=== PATIENT | female | born 1950 | race African-American/Black ===

== ENCOUNTER → 2016-10-09 | Outpatient (CLI) | payer MEDICARE, OTHER ==
[~2016-10-09] MED LIST: ASPI81TA2 PO; FOLI1TAB16 PO; IOHEXOL 240 MG/ML 50ML VIAL. ONE; IOHEXOL 240 MG/ML 50ML VIAL. PO ONE; IOHEXOL 300 MG/ML 75 ML VIAL. IV ONE; LEVO25TA4 PO; LISI2.5T PO; OMEG300C PO; VITA15DR PO
--- NOTE | 2016-10-09 11:40 | RAD ---
Indication intermittent left lower quadrant pain for a month. Axial images through the abdomen and pelvis were obtained. Oral contrast was administered. IV access could not be obtained and the study was done without IV contrast. Note is made of a previous similar examination 04/11/2014. There are underlying emphysematous changes with some associated pleural parenchymal scarring at the lung bases. The findings are similar to the previous exam. There is a low-density mass in the right lobe of the liver compatible with a cyst similar to the previous exam. A significant finding in the liver is not seen. The gallbladder is largely contracted but grossly normal. The spleen appears unremarkable. There are no adrenal masses. There are calcifications seen associated with the kidneys which are probably vascular in nature. These are unchanged relative to the previous exam. Aortic bypass is noted. No pancreatic abnormality is seen. An acute finding in the abdomen is not apparent. An acute finding in the pelvis is not seen. There are degenerative changes in the lumbar spine most pronounced at L5-S1 IMPRESSION: No acute finding seen in the abdomen or pelvis
== END | disposition home or self-care (01) ==
LOC: CT 08:08
PROVIDERS: ATTEND Family Medicine
DX: M47.897 Other spondylosis, lumbosacral region (principal)
CPT/HCPCS: 74176; Q9966

== ENCOUNTER → 2016-11-15 | Outpatient (CLI) | payer MEDICARE, OTHER ==
[~2016-11-15] MED LIST changes: -IOHEXOL 240 MG/ML 50ML VIAL. ONE; -IOHEXOL 240 MG/ML 50ML VIAL. PO ONE; -IOHEXOL 300 MG/ML 75 ML VIAL. IV ONE
--- NOTE | 2016-11-15 11:10 | RAD ---
DATE: 11/15/2016 EXAM: MAMMO MACHELLE SCREENING BILATERAL HISTORY: Routine screening COMPARISON: 09/30/2014, 10/25/2015 This study was interpreted with the benefit of Computerized Aided Detection (CAD). FINDINGS: 2-D and 3-D tomosynthesis imaging was performed in CC and MLO projections. There are scattered fibroglandular densities in the breasts. There is an unchanged tiny nodule at the 6:00 location in the right breast. There is a larger 10 mm nodule in the upper outer quadrant of the left breast which is also unchanged. No new or enlarging breast densities are seen. A few scattered benign type calcifications are noted. No suspicious microcalcifications have developed. IMPRESSION: Stable mammograms without evidence of malignancy. BI-RADS CATEGORY: 2 BENIGN FINDING(S) RECOMMENDED FOLLOW-UP: 12M 12 MONTH FOLLOW-UP PQRS compliance statement: Patient information was entered into a reminder system with a target due date for the next mammogram. Mammography is a sensitive method for finding small breast cancers, but it does not detect them all and is not a substitute for careful clinical examination. A negative mammogram does not negate a clinically suspicious finding and should not result in delay in biopsying a clinically suspicious abnormality. "Our facility is accredited by the [employer] Mammography Program."
== END | disposition home or self-care (01) ==
LOC: MAMMO 08:44
PROVIDERS: ATTEND Family Medicine
DX: Z12.31 Encounter for screening mammogram for malignant neoplasm of breast (principal)
CPT/HCPCS: 77063; G0202; 77067

== ENCOUNTER → 2017-11-13 | Outpatient (CLI) | payer MEDICARE, OTHER ==
[~2017-11-13] MED LIST changes: +ASPI-630 PO; -ASPI81TA2 PO
--- NOTE | 2017-11-14 11:47 | RAD ---
Bilateral lower extremity arterial ultrasound, 11/13/2017: History: Peripheral vascular disease Duplex evaluation of the major arteries in both lower extremities was performed including grayscale, color-flow and spectral Doppler analysis. There are mild scattered calcified plaques bilaterally. On the right, the common femoral, superficial femoral and popliteal arteries demonstrate biphasic Doppler waveforms. No significant focal velocity elevation is seen to suggest high-grade focal stenosis. Patent posterior tibial, peroneal and anterior tibial arteries are present in the right lower leg demonstrating good amplitude biphasic Doppler waveforms. A similar biphasic waveform is present in the right dorsalis pedis artery. On the left, the common femoral Doppler waveform is triphasic. The left superficial femoral and popliteal Doppler waveforms are biphasic. No significant focal velocity elevation is seen to suggest high-grade stenosis. Patent posterior tibial, peroneal and anterior tibial arteries are present in the left lower leg demonstrating biphasic Doppler waveforms. A similar biphasic Doppler waveform is present at the left dorsalis pedis artery level. IMPRESSION: Mild scattered atherosclerotic plaquing in both lower extremities without duplex evidence of significant arterial occlusive disease.
== END | disposition home or self-care (01) ==
LOC: US 14:37
PROVIDERS: ATTEND Family Medicine
DX: I70.293 Other atherosclerosis of native arteries of extremities, bilateral legs (principal)
CPT/HCPCS: 93925

== ENCOUNTER → 2017-11-28 | Outpatient (CLI) | payer MEDICARE, OTHER ==
[~2017-11-28] MED LIST changes: +IOHEXOL 300 MG/ML 50 ML VIAL. ONE; +methylPREDNISolone ACETATE 40 MG/ML VIAL. ONE
== END ==
LOC: SURG 11:26
PROVIDERS: ATTEND Anesthesiology Pain Medicine
DX: M79.1 Myalgia (principal); J45.909 Unspecified asthma, uncomplicated; J32.9 Chronic sinusitis, unspecified; J44.9 Chronic obstructive pulmonary disease, unspecified; I10 Essential (primary) hypertension; I25.10 Atherosclerotic heart disease of native coronary artery without angina pectoris; E11.9 Type 2 diabetes mellitus without complications; Z87.39 Personal history of other diseases of the musculoskeletal system and connective tissue
CPT/HCPCS: 20553; J1030; Q9967

== ENCOUNTER → 2017-12-25 | Outpatient (CLI) | payer MEDICARE, OTHER ==
[~2017-12-25] MED LIST changes: -IOHEXOL 300 MG/ML 50 ML VIAL. ONE; -methylPREDNISolone ACETATE 40 MG/ML VIAL. ONE
--- NOTE | 2017-12-30 09:39 | RAD ---
DATE: 12/30/2017 EXAM: MAMMO MACHELLE SCREENING BILATERAL HISTORY: Routine screening COMPARISON: Previous study from 2017 and 2016 This study was interpreted with the benefit of Computerized Aided Detection (CAD). FINDINGS: 2-D and 3-D tomosynthesis imaging was performed in CC and MLO projections. Breast density category A: the breasts are entirely fatty. The skin and nipples are within normal limits. Couple of benign bilateral intramammary lymph nodes. No suspicious ossifications, spiculated mass or area of architectural distortion. IMPRESSION: Stable mammograms without evidence of malignancy. BI-RADS CATEGORY: 2 BENIGN FINDING(S) RECOMMENDED FOLLOW-UP: 12M 12 MONTH FOLLOW-UP PQRS compliance statement: Patient information was entered into a reminder system with a target due date for the next mammogram. Mammography is a sensitive method for finding small breast cancers, but it does not detect them all and is not a substitute for careful clinical examination. A negative mammogram does not negate a clinically suspicious finding and should not result in delay in biopsying a clinically suspicious abnormality. "Our facility is accredited by the [employer] Mammography Program."
== END | disposition home or self-care (01) ==
LOC: MAMMO 14:53
PROVIDERS: ATTEND Family Medicine
DX: Z12.31 Encounter for screening mammogram for malignant neoplasm of breast (principal)
CPT/HCPCS: 77063; 77067

== ENCOUNTER → 2018-07-29 | Outpatient (CLI) | payer MEDICARE, OTHER ==
[~2018-07-29] MED LIST changes: +IOHEXOL 240 MG/ML 50ML VIAL. ONE
--- NOTE | 2018-07-29 16:40 | RAD ---
Examination: CT abdomen without contrast HISTORY: History of abdominal pain COMPARISON: 10/09/2016 TECHNIQUE:: Axial CT images of the abdomen were performed with oral contrast. Coronal and sagittal reformats are performed Exposure: One or more of the following individualized dose reduction techniques were utilized for this examination: 1. Automated exposure control 2. Adjustment of the mA and/or kV according to patient size 3. Use of iterative reconstruction technique FINDINGS: Partially visualized lung emphysematous changes identified in the bibasilar lungs. Linear atelectasis or scarring identified in the right lung base. No evidence of free air identified in the visualized abdomen. The visualized noncontrasted liver demonstrates a 2.3 cm cystic hypodensity in the right lobe of the liver likely a cyst. Visualized spleen, adrenals grossly appears unremarkable. The gallbladder is mildly distended. The stomach is mildly distended. Foci of air identified within the lumen of the stomach abutting the stomach wall. The visualized pancreas grossly appears unremarkable. The small bowel is nondilated. Punctate 4 mm calcification identified in the right and left kidney probably vascular calcifications and less likely intrarenal collecting system calculi. Partially visualized bypass graft identified in the aorta. Severe aortic atherosclerosis. Moderate degenerative changes lumbar spine. IMPRESSION: 1. No acute intra-abdominal findings identified. Examination limited due to lack of IV contrast. 2. Unchanged liver cyst. 3. Punctate 4 mm calcifications identified in the right and left kidneys could be vascular calcifications and less likely intrarenal collecting system calculi. Electronically signed by: Jairon Walsh MD (07/29/2018 4:36 PM) [id number]
== END | disposition home or self-care (01) ==
LOC: CT 13:32
PROVIDERS: ATTEND Family Medicine
DX: K76.89 Other specified diseases of liver (principal); N28.89 Other specified disorders of kidney and ureter; I70.0 Atherosclerosis of aorta; K31.89 Other diseases of stomach and duodenum; K82.8 Other specified diseases of gallbladder
CPT/HCPCS: 74150; Q9966

== ENCOUNTER → 2018-12-28 | Outpatient (CLI) | payer MEDICARE, OTHER ==
[~2018-12-28] MED LIST changes: -IOHEXOL 240 MG/ML 50ML VIAL. ONE
--- NOTE | 2018-12-30 10:31 | RAD ---
DATE: 12/28/2018 EXAM: MAMMO MACHELLE SCREENING BILATERAL HISTORY: Routine screening COMPARISON: 12/25/2017 This study was interpreted with the benefit of Computerized Aided Detection (CAD). Breast Density: FATTY The breast parenchyma is primarily fatty replaced. Breast parenchyma level density A. FINDINGS: 2-D and 3-D tomosynthesis imaging was performed in CC and MLO projections. There is an unchanged lymph node type density in the upper outer quadrant of the left breast. There is a tiny unchanged nodule at the 6:00 location in the right breast. No spiculated mass or architectural distortion is evident. Scattered benign type calcifications are present. No suspicious microcalcifications have developed. IMPRESSION: Stable mammograms without evidence of malignancy. BI-RADS CATEGORY: 2 BENIGN FINDING(S) RECOMMENDED FOLLOW-UP: 12M 12 MONTH FOLLOW-UP PQRS compliance statement: Patient information was entered into a reminder system with a target due date for the next mammogram. Mammography is a sensitive method for finding small breast cancers, but it does not detect them all and is not a substitute for careful clinical examination. A negative mammogram does not negate a clinically suspicious finding and should not result in delay in biopsying a clinically suspicious abnormality. "Our facility is accredited by the [employer] Mammography Program."
== END | disposition home or self-care (01) ==
LOC: MAMMO 12:51
PROVIDERS: ATTEND Family Medicine
DX: Z12.31 Encounter for screening mammogram for malignant neoplasm of breast (principal); N64.89 Other specified disorders of breast
CPT/HCPCS: 77063; 77067

== ENCOUNTER → 2020-01-18 | Outpatient (CLI) | payer MEDICARE, OTHER ==
--- NOTE | 2020-01-19 14:36 | RAD ---
BILATERAL SCREENING MAMMOGRAM, 3-D History: Routine screening. Comparison: 12/28/2018, 12/25/2017, 11/15/2016, 10/25/2015. Technique: MLO and CC digital tomosynthesis (3D) images obtained. Radiologist reviewed these images on dedicated workstation. Findings: Breast Tissue Density B : There are scattered areas of fibroglandular density. There are no dominant masses, suspicious microcalcifications, or architectural distortion. IMPRESSION: No mammographic evidence of malignancy. Recommend routine screening. BI-RADS category 1: Negative. The images were reviewed with computer-aided detection. Patient information is entered into reminder system with a target due date for the next screening mammogram. Mammography is the most sensitive method for finding small breast cancers, but it does not detect them all and is not a substitute for careful clinical examination. A negative mammogram does not negate a clinically suspicious finding and should not result in delay in biopsying a clinically suspicious abnormality. "Our facility is accredited by the [employer] Mammography Program." Electronically signed by: Brent Jaime MD (01/19/2020 2:33 PM) [id number]
== END | disposition home or self-care (01) ==
LOC: MAMMO 11:17
PROVIDERS: ATTEND Family Medicine
DX: Z12.31 Encounter for screening mammogram for malignant neoplasm of breast (principal)
CPT/HCPCS: 77063; 77067

== ENCOUNTER 2020-03-01 23:45 | Emergency (ER) | payer MEDICARE, OTHER ==
[~2020-03-01] VITALS: Ht 152.4 cm; Wt 60.5 kg
--- NOTE | 2020-03-02 00:17 | PHYS DOC ---
Past History Past Medical History: Arthritis, Diabetes, Hypertension, Renal Disease Past Surgical History: Hysterectomy, Other Additional Past Surgical Histo: carotid endarectomy; back surgery; Alcohol Use: None Adult General Chief Complaint Chief Complaint: HYPERTENSION HPI HPI Patient is a 70-year-old female who presents for asymptomatic hypertension. Patient reports taking her daily BP medications (30 mg lisinopril) in the evening at 9 PM. Nonetheless, approximately 1 hour after taking this medication, patient reported feeling "shaky"with feelings lasting less than 30 seconds. This prompted patient to check her fingerstick blood sugar which read 183 and BP which read a reading of roughly 200/100. Patient's elevated blood pressure reading concerned her prompting her to report to our ER for evaluation. Patient otherwise asymptomatic at time of arrival, denies any recent febrile illness, denies any known COVID-19 contacts. Denies headache, vision changes, chest pain, shortness of breath, abdominal pain, motor/sensory/neurologic changes. Patient admits to drinking "lots" of caffeine daily, admits consumption has not changed over the course of the last 24 to 48 hours. Admits recent medication changes, has history of taking Zestoretic but per her news specialist, hydrochlorothiazide was discontinued and patient has been taking 30 mg lisinopril nightly for past 1 month. Patient reports checking her blood pressure every morning with readings consistently less than 140/90, she is unsure of cause of elevated blood pressure reading this evening prompting her to seek emergent care today Review of Systems Review of Systems Fourteen body systems of review of systems have been reviewed. See HPI for pertinent positives and negative responses, other leal all other systems are negative, non-pertinent or non-contributory Allergies Allergies Allergies Coded Allergies Type Severity Reaction Last Updated Verified Sulfa (Sulfonamide Antibiotics) Allergy Intermediate 04/11/14 Yes Physical Exam Physical Exam Constitutional: Well developed, well nourished, no acute distress, non-toxic appearance. HENT: Normocephalic, atraumatic, bilateral external ears normal, oropharynx moist, no oral exudates, nose normal. Eyes: PERRLA, EOMI, conjunctiva normal, no discharge. Neck: Normal range of motion, no tenderness, supple, no stridor. Cardiovascular: Heart rate regular, sinus rhythm, no murmurs rubs or gallops Lungs & Thorax: Bilateral breath sounds clear to auscultation Abdomen: Bowel sounds normal, soft, no tenderness, no masses, no pulsatile masses. Nonsurgical abdomen, no peritoneal signs Skin: Warm, dry, no erythema, no rash. Back: No tenderness, no CVA tenderness. Extremities: No tenderness, no cyanosis, no clubbing, ROM intact, no edema. Neurologic: Alert and oriented X 3, grossly normal motor & sensory function, no focal deficits noted. Psychologic: Affect normal, judgement normal, mood normal. Current Patient Data Vital Signs Vital Signs Date Time Temp Pulse Resp B/P (MAP) Pulse Ox O2 Delivery O2 Flow Rate FiO2 03/01/20 23:55 97.6 98 16 190/107 (134) 99 Room Air EKG EKG [] Radiology/Procedures Radiology/Procedures [] Course & Med Decision Making Course & Med Decision Making Ambulatory, well-appearing, and asymptomatic patient seen on immediate ER presentation by myself Airway patent, unlabored breathing, vital signs obtained and remarkable for marked hypertension without any other abnormalities Comprehensive history and physical exam obtained No indication for further diagnostic work-up given current asymptomatic hypertension Discussed potential plans of care for patient for her asymptomatic hypertension Joint decision to administer 10 mg lisinopril tonight with close PCP follow-up in the morning I advised patient to resume 30 mg lisinopril in outpatient setting after today's visit unless otherwise changed by her PCP. Discussed importance of keeping comprehensive blood pressure log for PCP review, I advised patient to record at least 2 or 3 readings daily until she is seen by PCP Strict return precautions were discussed with good understanding by patient, all questions and concerns addressed prior to ER departure Ultimately, patient discharged home in stable condition with close PCP contact and hopeful follow-up in the morning for asymptomatic hypertension Dragon Disclaimer Dragon Disclaimer This electronic medical record was generated, in whole or in part, using a voice recognition dictation system. Departure Departure: Impression: Primary Impression: Asymptomatic hypertension Disposition: 01 HOME/RESIDENCE PRIOR TO ADM Condition: STABLE Referrals: IKER HESS MD (PCP) Patient Instructions: Hypertension Justification of Admission: Justification of Admission: Justification of Admission Dx: N/A MISAELJOSE DO Mar 02, 2020 00:17
[2020-03-02] MEDS ORDERED: LISINOPRIL 10 MG TABLET ONE (00:24)
[2020-03-02 00:26] VITALS: BP 189/90
[2020-03-02] MEDS ORDERED: LISINOPRIL 10 MG TABLET PO ONE (00:30)
[2020-03-06] MEDS ORDERED: AMLO2.5T5 PO (01:44)
== END 2020-03-02 00:30 | disposition home or self-care (01) ==
LOC: ER 23:45
DX: I10 Essential (primary) hypertension (principal); M19.90 Unspecified osteoarthritis, unspecified site; E11.9 Type 2 diabetes mellitus without complications; Z88.2 Allergy status to sulfonamides
CPT/HCPCS: 99283

== ENCOUNTER → 2020-03-06 | Emergency (ER) | payer MEDICARE, OTHER ==
[~2020-03-06] VITALS: Ht 152.4 cm; Wt 59.2 kg
[~2020-03-06] MED LIST changes: +AMLO2.5T5 PO; +hydrALAZINE 20 MG/ML VIAL. IV ONE
--- NOTE | 2020-03-06 00:12 | PHYS DOC ---
Past History Past Medical History: Arthritis, Diabetes, Hypertension, Hypothyroid, Renal Disease Past Surgical History: Hysterectomy, Other Additional Past Surgical Histo: carotid endarectomy; back surgery; Alcohol Use: None General Adult EDM: Chief Complaint: high blood pressure HPI: HPI: Patient is a 70 year old female who presents for evaluation of increased blood pressure tonight. Patient states she felt some shakiness but no headache or vision changes. Patient denies any shortness of air or chest pain either. Patient is otherwise benign-appearing. Patient was seen in the ER about 3 nights ago for a similar problem. Dr. Richards is her physician. Patient has a steady gait with no focal deficits or lateralizing signs. Patient had recently been on a water pill but was discontinued due to her renal insufficiency and concerns about developing dehydration. Review of Systems: Review of Systems: Constitutional: Denies fever or chills Eyes: Denies change in visual acuity HENT: Denies nasal congestion or sore throat Respiratory: Denies cough or shortness of breath Cardiovascular: Denies chest pain or edema GI: Denies abdominal pain, nausea, vomiting, or diarrhea : Denies dysuria Musculoskeletal: Denies back pain or joint pain Integument: Denies rash Neurologic: Denies headache, focal weakness or sensory changes Endocrine: Denies polyuria or polydipsia Lymphatic: Denies swollen glands Psychiatric: Denies depression or anxiety Heart Score: Risk Factors: Risk Factors: DM, Current or recent (<one month) smoker, HTN, HLP, family history of CAD, obesity. Risk Scores: Score 0 - 3: 2.5% MACE over next 6 weeks - Discharge Home Score 4 - 6: 20.3% MACE over next 6 weeks - Admit for Clinical Observation Score 7 - 10: 72.7% MACE over next 6 weeks - Early Invasive Strategies Allergies: Allergies: Allergies Coded Allergies Type Severity Reaction Last Updated Verified Sulfa (Sulfonamide Antibiotics) Allergy Intermediate 04/11/14 Yes Physical Exam: PE: Constitutional: Well developed, well nourished, mild acute distress, non-toxic appearance. [] HENT: Normocephalic, atraumatic, bilateral external ears normal, oropharynx moist, no oral exudates, nose normal. [] Eyes: PERRL, EOMI, conjunctiva normal, no discharge. [] Neck: Normal range of motion, no tenderness, supple, no stridor. [] Cardiovascular:Heart rate regular rhythm, no murmur [] Lungs & Thorax: Bilateral breath sounds clear to auscultation [] Abdomen: Bowel sounds normal, soft, no tenderness, no masses, no pulsatile masses. [] Skin: Warm, dry, no erythema, no rash. [] Back: No tenderness. [] Extremities: No tenderness, no cyanosis, ROM intact, no edema. [] Neurologic: Alert and oriented X 3, normal motor function, normal sensory function, no focal deficits noted. [] Psychologic: Affect normal, judgement normal, mood normal. [] Current Patient Data: Labs: Laboratory Tests Test 03/06/20 00:35 White Blood Count 7.5 x10^3/uL Red Blood Count 3.83 x10^6/uL Hemoglobin 11.9 g/dL Hematocrit 35.9 % Mean Corpuscular Volume 94 fL Mean Corpuscular Hemoglobin 31 pg Mean Corpuscular Hemoglobin Concent 33 g/dL Red Cell Distribution Width 13.4 % Platelet Count 280 x10^3/uL Neutrophils (%) (Auto) 39 % Lymphocytes (%) (Auto) 50 % Monocytes (%) (Auto) 8 % Eosinophils (%) (Auto) 2 % Basophils (%) (Auto) 1 % Neutrophils # (Auto) 3.0 x10^3uL Lymphocytes # (Auto) 3.8 x10^3/uL Monocytes # (Auto) 0.6 x10^3/uL Eosinophils # (Auto) 0.1 x10^3/uL Basophils # (Auto) 0.1 x10^3/uL Sodium Level 143 mmol/L Potassium Level 3.6 mmol/L Chloride Level 108 mmol/L Carbon Dioxide Level 24 mmol/L Anion Gap 11 Blood Urea Nitrogen 26 mg/dL Creatinine 1.3 mg/dL Estimated GFR (Cockcroft-Gault) 49.0 BUN/Creatinine Ratio 20 Glucose Level 89 mg/dL Calcium Level 9.5 mg/dL Total Bilirubin 0.2 mg/dL Aspartate Amino Transf (AST/SGOT) 23 U/L Alanine Aminotransferase (ALT/SGPT) 22 U/L Alkaline Phosphatase 112 U/L Troponin I Quantitative < 0.017 ng/mL Total Protein 7.6 g/dL Albumin 3.3 g/dL Albumin/Globulin Ratio 0.8 Current Medications Medications (Trade) Dose Ordered Sig/Fran Route PRN Reason Start Time Stop Time Status Last Admin Dose Admin Hydralazine HCl (Apresoline) 10 mg 1X ONCE IV 03/06/20 01:00 03/06/20 01:01 DC 03/06/20 01:08 EKG: EKG: EKG showed normal sinus rhythm, rate 70, flattened T waves lead III, otherwise essentially normal EKG, not STEMI, patient likely has old anterior septal infarct [] Radiology/Procedures: Radiology/Procedures: [] Course & Med Decision Making: Course & Med Decision Making Pertinent Labs and Imaging studies reviewed. (See chart for details) [] Dragon Disclaimer: Dragon Disclaimer: This electronic medical record was generated, in whole or in part, using a voice recognition dictation system. 0104 stable, feeling better at this time. Current blood pressure now 166/87 after IV hydralazine given 0140 patient continues to symptomatically improved. Current blood pressure 159/72. Patient had been on a water pill recently but due to her chronic renal insufficiency it has been discontinued. Since then she has been running elevated blood pressures. Patient advised to call and see Dr. Celis right away the office. Departure Departure: Impression: Primary Impression: Elevated blood pressure reading Additional Impression: Chronic renal disease Qualified Codes: N18.9 - Chronic kidney disease, unspecified Disposition: HOME/RESIDENCE PRIOR TO ADM Condition: STABLE Referrals: IKER RICHARDS MD (PCP) Patient Instructions: Hypertension Additional Instructions: Keep monitoring your blood pressures at home. Call and see your doctor about changing your blood pressure medication. In the meantime a prescription for a limited number of amlodipine given Scripts Amlodipine Besylate (AMLODIPINE BESYLATE) 2.5 Mg Tablet 1 TAB PO DAILY for hypertension, #30 TAB 5 Refills Prov: EVELYN MCCRACKEN DO 03/06/20 Justification of Admission: Justification of Admission: Justification of Admission Dx: N/A EVELYN MCCRACKEN DO Mar 06, 2020 00:12
--- NOTE | 2020-03-06 00:40 | EKG ---
[address] [address] Test Date: 2020-03-06 Test Time: 00:35:07 Pat Name: MIGUEL MARTINEZ Department: Room: Gender: F Flooring Professional: : 1950 Requested By: EVELYN MCCRACKEN Order Number: [id number] Reading MD: Measurements Intervals Elton Rate: 78 P: 59 NM: 198 QRS: 37 QRSD: 66 T: 26 QT: 374 QTc: 430 Interpretive Statements SINUS RHYTHM LEFT ATRIAL ABNORMALITY QRS(T) CONTOUR ABNORMALITY CONSISTENT WITH ANTEROSEPTAL INFARCT PROBABLY OLD ABNORMAL ECG RI6.02 No previous ECG available for comparison
[2020-03-06 00:56] LABS: BASO # 0.1 x10^3/uL (0.0-0.2); BASO % 1 % (0-3); EOS # 0.1 x10^3/uL (0.0-0.7); EOS % 2 % (0-3); HEMATOCRIT 35.9 % (36.0-47.0); HEMOGLOBIN 11.9 g/dL (12.0-15.5); LYMPH # 3.8 x10^3/uL (1.0-4.8); LYMPH % 50 % (24-48); MEAN CORPUSCULAR HEMOGLOBIN 31 pg (25-35); MEAN CORPUSCULAR HGB CONC 33 g/dL (31-37); MEAN CORPUSCULAR VOLUME 94 fL (79-100); MONO # 0.6 x10^3/uL (0.0-1.1); MONO % 8 % (0-9); NEUT % 39 % (31-73); PLATELET COUNT 280 x10^3/uL (140-400); RED BLOOD COUNT 3.83 x10^6/uL (3.50-5.40); RED CELL DISTRIBUTION WIDTH 13.4 % (11.5-14.5); WHITE BLOOD COUNT 7.5 x10^3/uL (4.0-11.0)
[2020-03-06 01:06] LABS: CALCIUM 9.5 mg/dL (8.5-10.1); CREATININE 1.3 mg/dL (0.6-1.0); POTASSIUM 3.6 mmol/L (3.5-5.1)
[2020-03-06 01:12] VITALS: BP 166/87
[2020-03-06 01:13] LABS: ALBUMIN 3.3 g/dL (3.4-5.0); ALBUMIN/GLOBULIN RATIO 0.8 (1.0-1.7); TOTAL BILIRUBIN 0.2 mg/dL (0.2-1.0); TOTAL PROTEIN 7.6 g/dL (6.4-8.2)
== END ==
LOC: ER 00:02
DX: I12.9 Hypertensive chronic kidney disease with stage 1 through stage 4 chronic kidney disease, or unspecified chronic kidney disease (principal); N18.9 Chronic kidney disease, unspecified; M19.90 Unspecified osteoarthritis, unspecified site; E11.9 Type 2 diabetes mellitus without complications; Z88.2 Allergy status to sulfonamides
CPT/HCPCS: 36415; 80053; 84484; 85025; 93005; 96374; 99284; J0360

== ENCOUNTER → 2020-03-10 | Outpatient (CLI) | payer MEDICARE, OTHER ==
[2020-03-06 01:12] VITALS: BP 166/87
[~2020-03-10] MED LIST changes: -hydrALAZINE 20 MG/ML VIAL. IV ONE
[2020-03-10] MEDS: IOHEXOL 350 MG/ML 100 ML VIAL. IV ONE (18:11)
--- NOTE | 2020-03-10 18:38 | RAD ---
Study: CT CHEST WITH CONTRAST - PULMONARY ANGIOGRAM History: Shortness of air. Elevated d-dimer. History of right lower lobectomy. Comparison: Correlation is made to a CT abdomen from 07/29/2018 Technique: Helical CT of the chest performed after the administration of 75 cc Omnipaque 350 intravenous contrast and timed for angiographic evaluation of the pulmonary arteries per PE protocol. Coronal and sagittal 3D MIP reformations were obtained. One or more of the following individualized dose reduction techniques were utilized for this examination: 1. Automated exposure control 2. Adjustment of the mA and/or kV according to patient size 3. Use of iterative reconstruction technique. Findings: Pulmonary Arteries: No main, lobar or segmental pulmonary embolism. The main pulmonary artery is normal in transverse dimension. Heart/Systemic Vasculature: Multifocal calcified and noncalcified atheromatous plaque. 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 No aortic aneurysmal dilatation. Stenosis at the left subclavian origin appearing to be mild but possibly moderate. Stenosis at the left vertebral artery origin. Calcific coronary artery disease. Mediastinum: Borderline prominent right hilar lymph node on image 57 series 4 measuring around 1 cm short axis. Additional lymph nodes are subcentimeter in size. Lungs: Emphysema. No suspicious nodule by size criteria. No confluent infiltrate, pneumothorax or pleural effusion. Neck/Axilla/Body Wall: Probable previous left hemithyroidectomy. No axillary adenopathy. Upper Abdomen: Right hepatic lobe hypoattenuating focus is unchanged from the comparison. Apparent soft tissue fullness at the left renal pelvis was present in 2019. Bones: No acute or aggressive osseous process. Scattered degenerative changes. Miscellaneous: None. IMPRESSION: 1. No main, lobar or segmental pulmonary embolism is identified. 2. Extensive calcific atherosclerosis to include coronary artery involvement. 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 Mild to potentially moderate stenosis at the left subclavian artery origin. No aortic aneurysmal dilatation or dissection. 3. Emphysematous changes of the lungs. If the patient meets screening guidelines consider annual low dose CT. 4. Soft tissue fullness is partially visualized at the left renal pelvis. This configuration was present in 2019 and may be anatomic but consider eventual renal sonography to further assess. 5. Additional chronic observations as above. Electronically signed by: NEW AGUIAR MD (03/10/2020 6:35 PM) [id number]
== END | disposition home or self-care (01) ==
LOC: CT 17:31
PROVIDERS: ATTEND Nurse Practitioner Adult Health
DX: J43.8 Other emphysema (principal); I25.10 Atherosclerotic heart disease of native coronary artery without angina pectoris; I65.02 Occlusion and stenosis of left vertebral artery; I77.1 Stricture of artery; R79.89 Other specified abnormal findings of blood chemistry
CPT/HCPCS: 71275; Q9967

== ENCOUNTER → 2020-10-07 | Outpatient (CLI) | payer MEDICARE, OTHER ==
[2020-03-06 01:12] VITALS: BP 166/87
--- NOTE | 2020-10-07 10:25 | RAD ---
Exam: US DPLX VENOUS EXTREMITY LOWER LT Indication: Reason: Pain in left leg. Hx: Peripheral vascular angioplasty 09/02/20 / [facility]. Instructions : / History: Technique: Color-flow and pulsed wave duplex ultrasound with compression of venous structures of the left lower extremity. Comparison: None Available. Findings: Duplex ultrasound with compression of the deep venous structures of the left lower extremit y from the common femoral vein through the popliteal vein is negative for DVT. The posterior tibial a nd peroneal veins are segmentally visualized and patent where seen. Normal venous waveforms and augme ntation are noted throughout. Impression: No evidence for DVT in the left lower extremity. Electronically signed by: Rj Manuel MD (10/07/2020 10:22 AM) [id number]
== END ==
LOC: US 09:27
PROVIDERS: ATTEND Family Medicine
DX: M79.662 Pain in left lower leg (principal); Z95.820 Peripheral vascular angioplasty status with implants and grafts
CPT/HCPCS: 93971

== ENCOUNTER → 2021-03-30 | Outpatient (CLI) | payer MEDICARE, OTHER ==
[2020-03-06 01:12] VITALS: BP 166/87
[~2021-03-30] MED LIST changes: -LISI2.5T PO; +LISI2.5T12 PO
[2021-03-30 10:15] LABS: BASO % 1 % (0-3); EOS # 0.1 x10^3/uL (0.0-0.7); EOS % 2 % (0-3); HEMATOCRIT 20.3 % (36.0-47.0); LYMPH # 2.4 x10^3/uL (1.0-4.8); LYMPH % 36 % (24-48); MEAN CORPUSCULAR HEMOGLOBIN 28 pg (25-35); MEAN CORPUSCULAR HGB CONC 32 g/dL (31-37); MEAN CORPUSCULAR VOLUME 88 fL (79-100); MONO # 0.5 x10^3/uL (0.0-1.1); MONO % 8 % (0-9); NEUT # 3.6 x10^3uL (1.8-7.7); NEUT % 54 % (31-73); PLATELET COUNT 386 x10^3/uL (140-400); RED CELL DISTRIBUTION WIDTH 14.1 % (11.5-14.5); WHITE BLOOD COUNT 6.6 x10^3/uL (4.0-11.0)
[2021-03-30 10:43] LABS: ALBUMIN 3.6 g/dL (3.4-5.0); ALBUMIN/GLOBULIN RATIO 0.9 (1.0-1.7); CALCIUM 9.1 mg/dL (8.5-10.1); CREATININE 1.6 mg/dL (0.6-1.0); GFR 38.4; POTASSIUM 4.6 mmol/L (3.5-5.1); TOTAL BILIRUBIN 0.3 mg/dL (0.2-1.0); TOTAL PROTEIN 7.5 g/dL (6.4-8.2)
[2021-03-30 10:49] LABS: HEMOGLOBIN 6.5 g/dL (12.0-15.5)
== END ==
LOC: LAB 08:39
PROVIDERS: ATTEND Nurse Practitioner Adult Health
DX: K92.1 Melena (principal); R53.83 Other fatigue; E55.9 Vitamin D deficiency, unspecified
CPT/HCPCS: 36415; 80053; 82306; 84443; 85025

== ENCOUNTER → 2021-07-11 | Outpatient (CLI) | payer MEDICARE, OTHER ==
[2021-03-30 22:12] VITALS: BP 137/69
--- NOTE | 2021-07-12 11:25 | RAD ---
INDICATION: 71 years of age asymptomatic female patient presents for screening mammography. Screening TECHNIQUE: Full field craniocaudal and mediolateral oblique images of both breasts were obtained usi ng digital technique with tomosynthesis and also analyzed with computer-aided detection software. . COMPARISON: 03/19/2020 12/28/2018 12/25/2017. BREAST COMPOSITION: Category B: There are scattered fibroglandular densities. FINDINGS: Circumscribed nodules within each breast unchanged from prior study. Otherwise no suspicious mass or clustered microcalcification. No architectural distortion.. IMPRESSION: Stable bilateral mammogram. RECOMMENDATION: Annual screening mammography is recommended, unless clinically indicated sooner based on symptoms or change in physical exam. BIRADS 2: BENIGN This study was interpreted with the benefit of Computerized Aided Detection (CAD). Recommend routine screening in one year. Patient information is entered into the reminder system with a target due date for the next screening mammogram. Mammography is the most sensitive method for finding small breast cancers, but it does not detect the m all and is not a substitute for careful clinical examination. A negative mammogram does not negate a clinically suspicious finding and should not result in delay in biopsying a clinically suspicious a bnormality. "Our facility is accredited by the [employer] Mammography Program." Electronically signed by: Chris Travis MD (07/12/2021 11:23 AM) [id number]
== END ==
LOC: MAMMO 14:30
PROVIDERS: ATTEND Family Medicine
DX: Z12.31 Encounter for screening mammogram for malignant neoplasm of breast (principal)
CPT/HCPCS: 77063; 77067